=== PATIENT | male | born 1990 | race Asian ===

== ENCOUNTER 2020-12-12 10:56 | Emergency (ER) | payer OTHER, BC | END 2020-12-12 12:04 | disposition home or self-care (01) | LOC: ERS 10:56 | DX: S16.1XXA Strain of muscle, fascia and tendon at neck level, initial encounter (principal); Z87.891 Personal history of nicotine dependence; V43.92XA Unspecified car occupant injured in collision with other type car in traffic accident, initial encounter | CPT/HCPCS: 99283 ==